=== PATIENT | male | born 1955 | race Caucasian/White ===

== ENCOUNTER 2016-12-05 17:46 | Inpatient (IN) | payer MEDICARE, OTHER ==
--- NOTE | ~2016-12-05 | CT4 ---
[facility]. [facility] A Service of [facility] RADIOLOGY TEXT RESULTS PATIENT: MARIETTA CABRERA LOCATION: A 324-01 : 55 UNIT #: [id number] AGE: [address]: Renate Serna MD SEX: M ORDER DR: [id number] [facility] [address] [facility] [address] [facility]. [place], [place] [address] [id number] MR#: [id number] #: [id number] NAME: MARIETTA CABRERA : 1955 SEX: M STUDY DATE/TIME: 12/05/2016 18:39 UNIT: CEDOF ROOM: 71453 STUDY DESCRIPTION: CT Abd and Pelv Wo Cont Attending Physician: Marie Romero M.D. Ordering Physician: Flor Sherwood M.D. MEDICAL IMAGING REPORT This report is preliminary unless electronic signature is present EXAM CT abdomen and pelvis no contrast 12/05/2016 HISTORY Nausea and vomiting for several weeks. TECHNIQUE This CT exam was performed with one or more of the following radiation dose reduction techniques: automatic exposure control, adjustment of mA and/or kV according to patient size, and iterative reconstruction. COMPARISON STUDIES There are no prior studies for comparison. FINDINGS There are linear and nodular changes at the right lung base with a tiny right effusion, cannot exclude a coarse infiltrate and/or resolving infiltrate or even a small mass. The left lung base shows mild but infiltrate as well versus atelectasis. ABDOMEN: There is a small pericardial effusion. There are tiny sand-like stones within the gallbladder layering posteriorly. The liver is otherwise normal on these unenhanced images and the spleen is normal. The pancreas is mostly fatty replaced but no acute abnormality is seen. The adrenal glands are normal. There are bilateral renal simple cysts but there is no evidence of solid mass, calcification or hydronephrosis. The aorta is normal in caliber. There is no bowel obstruction, but there is a moderate amount residual in the colon which is moderately dilated. The appendix is not confidently identified but there is no evidence to suggest appendicitis or other acute [facility] A Service of [facility] RADIOLOGY TEXT RESULTS PATIENT: MARIETTA CABRERA LOCATION: A 324-01 : 55 UNIT #: [id number] AGE: [address]: Renate Serna MD SEX: M ORDER DR: cristi. There is no hernia. There are spinal degenerative changes, though modest. No acute bony abnormality is seen. IMPRESSION 1. There are multiple tiny sand-like stones within the gallbladder but there is no evidence to suggest cholecystitis or biliary obstruction or choledocholithiasis. 2. There is no evidence of bowel obstruction or renal obstruction. There are simple renal cysts but no stones are seen. 3. There is a moderate amount of stool seen throughout the colon but no dilated loops are seen. Small bowel is normal in caliber. The appendix is not identified and there is no evidence to suggest acute appendicitis. There is some high-density material of the urinary bladder near the right uterovesical junction, but there is no dilatation of the ureter or evidence of a ureteral stone. It would be unusual to see such an unusually configured stone in that region without ureterectasis, though there are no older studies for comparison. 4. There is coarse right basilar infiltrate or scarring or atelectasis and a tiny right effusion and minimal left basilar infiltrate. Dictated by... Martinez Christine M.D. THIS IS AN ELECTRONICALLY VERIFIED REPORT Martinez Christine M.D. at 12/09/2016 4:33 PM TEV/pcl TD: 12/05/2016 23:13 JOB #: [id number] MEDICAL IMAGING REPORT COPY
--- NOTE | ~2016-12-05 | CO ---
Unit #: [id number] #: [id number] Patient: MARIETTA CABRERA [id number] [facility] [address] [facility]. [place], [place] [address] [id number] I MR#: [id number] NAME: MARIETTA CABRERA ROOM: 324 Age: 60 Sex: M Admission Date: 12/05/2016 : 1955 Attending Physician: Renate Serna M.D. Primary Care Physician: Mei Primary Care Physician Consultation Date: 12/09/2016 CONSULTATION REPORT REASON FOR CONSULTATION Rule out pneumonia. CHIEF COMPLAINT Vomiting. HISTORY OF PRESENT ILLNESS This is a 60-year-old male with a past medical history significant for chronic immobility, coronary artery disease, seizure disorder, diabetes, and hypertension who presented to the emergency room for the evaluation of vomiting. The patient stated that his forced him to come to the emergency room. He didn't feel bad to come to the hospital. Patient had a recent admission to [facility] for GI bleeding in 12/2016. The patient is unable to provide any history. Per his family, he is typically able to answer questions at baseline. Plus he may not know the date. PAST MEDICAL HISTORY 1. History of severe esophagitis. 2. History of CVA. 3. Diabetes. 4. Hypertension. 5. Hyperlipidemia. 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 7. History of deltoid abscesses. 8. Basal cell carcinoma. 9. Depression. 10. Seizure. 11. Immobility. PAST SURGICAL HISTORY 1. Excision of left shoulder basal cell carcinoma. 2. Incision and drainage of deltoid abscess. 3. Tonsillectomy. SOCIAL HISTORY The patient lives with his , is immobile and there is no tobacco or alcohol abuse. FAMILY HISTORY Breast cancer and lung cancer. Unit #: [id number] #: [id number] Patient: MARIETTA CABRERA ALLERGIES No known drug allergy. HOME MEDICATIONS 1. Flomax. 2. Vimpat. 3. Keppra. 4. Coreg. 5. Lipitor. 6. Ferrous sulfate. 7. Proscar. 8. Aspirin. 9. Plavix. 10. Zyprexa. 11. Imdur. 12. Nitroglycerin. REVIEW OF SYSTEMS Twelve point review of systems were obtained and he denied almost everything except for vomiting that was noted in the ER note. PHYSICAL EXAMINATION GENERAL: The patient is in no acute distress. He is awake and answering my questions, mainly with appropriate response. HEENT: Atraumatic, normocephalic. PERRLA, EOMI. NECK: Supple. No JVD, no lymphadenopathy. CHEST: Decreased breath sounds bilaterally. HEART: S1, S2. No murmur, gallops or rubs. ABDOMEN: Soft, nontender. Bowel sounds positive. No hepatosplenomegaly. EXTREMITIES: No edema or cyanosis. SKIN: No rashes. BIT SANDER: Awake, alert. He has generalized weakness but no focal symptom. DIAGNOSTIC STUDIES LABS AND OTHER TESTS: Creatinine 1.3, sodium 141, CO2 20, magnesium 1.7, white blood count 6.6. IMAGING STUDIES: CT of abdomen on presentation was concerning for left bilateral lower lobe infiltrate. ASSESSMENT 1. TME. 2. Rule out aspiration pneumonia. 3. Chronic immobility. 4. Basal cell carcinoma. 5. Seizure disorder. 6. Diabetes. 7. Hypertension. PLAN 1. Patient is hemodynamically stable on 1 L nasal cannula. His baseline is room air at home. 2. CT abdomen was noted by me from days ago. 3. There is no signs of pneumonia. 4. I will de-escalate likely all his antibiotics once all his cultures are back. Unit #: [id number] #: [id number] Patient: MARIETTA CABRERA 5. Bronchodilator and mucolytics. 6. DVT and GI prophylaxis. Dictated by... Christine James TD: 12/10/2016 07:48 JOB #: [id number] CONSULTATION REPORT X ROYER GIRALDO MD X CONSULTATION REPORT
--- NOTE | ~2016-12-05 | HP ---
Unit #: [id number] #: [id number] Patient: MARIETTA CABRERA [id number] [facility]. [place], [place] [address] [id number] MR#: [id number] NAME: MARIETTA CABRERA ROOM: 32562 Age: 60 Sex: M Admission Date: 12/05/2016 : 1955 Attending Physician: Marie Romero M.D. HISTORY AND PHYSICAL CHIEF COMPLAINT Vomiting. HISTORY OF PRESENT ILLNESS The patient is a 60-year-old male with a past medical history of multiple medical problems including chronic anemia, chronic immobility, urinary retention, deltoid abscess, non-ST elevation myocardial infarction, basal cell carcinoma, seizure disorder, diabetes, hypertension, hyperlipidemia, Guillain-[place] syndrome, and malnutrition, who presented to the emergency department for evaluation of the above. History is obtained from chart review and discussion with ER staff, as well as discussion with family and a neighbor who are at bedside. The patient was admitted to [facility] November 192016, for upper GI bleed. He underwent EGD that showed severe esophagitis. He was discharged home. The family states that he vomits daily. However, today he had an episode of projectile vomiting and seemed to be somewhat confused and so they brought him to the emergency department for further evaluation. The patient is really unable to provide or contribute to history. The family states that he is typically able to answer questions at baseline. He may or may not know the date. In the emergency department, pulse and blood pressure were 70 and 143/86, respectively. Oxygen saturation 97% on room air. A CT of the abdomen and pelvis was done and showed an opacity at the right base. CT of the head showed nothing acute. He was given vancomycin, Zosyn, and tobramycin in the emergency department. He is being admitted to [facility] for evaluation and further treatment. PAST MEDICAL HISTORY 1. Admission to [facility] November 19-2016, for upper GI bleed. He underwent EGD during that admission that showed severe esophagitis. 2. History of cerebrovascular accident. 3. Diabetes. 4. Hypertension. 5. Hyperlipidemia. 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 7. History of deltoid abscess, status post incision and drainage. 8. Coronary artery disease with history of non-ST elevation myocardial infarction. 9. Basal cell carcinoma of the left shoulder, status post excision. 10. Depression. 11. Seizures. Unit #: [id number] #: [id number] Patient: MARIETTA CABRERA 12. Immobility. PAST SURGICAL HISTORY 1. Excision of left shoulder basal cell carcinoma. 2. Incision and drainage of deltoid abscess. 3. Tonsillectomy. SOCIAL HISTORY The patient lives with his . He is immobile. There is no tobacco or alcohol use. FAMILY HISTORY Notable for his mother having breast cancer, and his dad had lung cancer. ALLERGIES No known allergies. HOME MEDICATIONS Per the Discharge Summary from November 21, 2016, include: 1. Flomax 0.8 mg daily. 2. Vimpat 100 mg b.i.d. 3. Keppra 1000 mg b.i.d. 4. Nystatin 5 mL q.8 hours. 5. Coreg 12.5 mg b.i.d. 6. Lipitor 20 mg daily. 7. Ferrous gluconate 324 mg b.i.d. 8. Proscar 5 mg daily. 9. Aspirin 81 mg daily. 10. Plavix 75 mg daily. 11. Zyprexa 5 mg daily. 12. Imdur 30 mg daily. 13. Nitroglycerin 0.4 mg sublingual p.r.n. 14. Protonix 40 mg daily. REVIEW OF SYSTEMS A complete review of systems is unobtainable from the patient due to altered mental status. PHYSICAL EXAMINATION VITAL SIGNS: Temperature is 97.8, pulse 70, respirations 20, blood pressure 143/86, and oxygen saturation is 97% on room air. GENERAL: Patient is a male who is chronically ill appearing and actively vomiting. HEENT: Head is atraumatic. Mucous membranes are dry. NECK: Supple. Trachea is midline. CARDIOVASCULAR: Regular rate and rhythm. LUNGS: Scattered rhonchi. Breathing is not labored. ABDOMEN: Soft and nontender with bowel sounds present in all four quadrants. EXTREMITIES: Upper extremities are contracted bilaterally. No pedal edema. NEUROLOGIC: Patient shook his head no to answer if he had any pain. PSYCHIATRIC: Patient is cooperative. SKIN: Skin is diaphoretic. DIAGNOSTIC STUDIES LABORATORY: Complete blood count notable for hemoglobin and hematocrit of 10.7 and 33, respectively. Arterial blood gas shows a pH of 7.429, PCO2 Unit #: [id number] #: [id number] Patient: MARIETTA CABRERA of 32.9, and PO2 of 84.6 on room air. INR is 1. Lactic acid is 1.7. Comprehensive metabolic panel notable for a glucose of 136, BUN and creatinine 32 and 1.6, respectively, and albumin is 3.1. Lipase is 16 and amylase 17. Troponin is less than 0.05. IMAGING: CT of the head shows nothing acute. CT of the abdomen and pelvis shows a right base opacity. CARDIOLOGY: EKG shows normal sinus rhythm with a rate of 70 beats per minute. ASSESSMENT The patient is a 60-year-old male with: 1. Altered mental status. 2. Healthcare-associated pneumonia. The patient received vancomycin, Zosyn, and tobramycin in the emergency department. 3. Nausea and vomiting. 4. Acute kidney injury. The patient's creatinine was 1.1 on November 21, 2016. It is 1.6 today. 5. Chronic anemia. The patient's hemoglobin was 9.6 on November 21, 2016. It is 10.7 today. 6. Chronic immobility. 7. Urinary retention with chronic Trcaey catheter. 8. History of deltoid abscess, status post incision and drainage. 9. History of coronary artery disease, status post non-ST elevation myocardial infarction. 10. History of basal cell carcinoma, status post excision. 11. Seizure disorder maintained on Vimpat and Keppra. 12. Diabetes. 13. Hypertension. 14. Hyperlipidemia. 15. Guillain-[place] syndrome. 16. History of cerebrovascular accident. PLAN 1. Admit to intermediate level. 2. N.p.o. until Speech evaluation. 3. Speech Therapy to evaluate and treat. 4. Normal saline at 75 mL/hour. 5. TSH, B12, and folate. 6. Neuro checks q.4 hours. 7. Blood cultures x2. 8. Sputum culture and sensitivity. 9. Supplemental oxygen 2-4 liters to maintain saturations greater than 92%. 10. Streptococcal and legionella urine antigens. 11. Procalcitonin level. 12. DuoNebs q.4 hours. 13. Vancomycin IV, tobramycin IV, and Zosyn IV pending further workup. 14. Sepsis protocol with repeat lactic acid. 15. Check urinalysis with culture and sensitivity. 16. P.r.n. Zofran. 17. P.r.n. Phenergan. 18. Change Vimpat and Keppra to IV. 19. Wound care consult regarding right foot wound present on admission. 20. SCDs. 21. P.r.n. Tylenol. 22. Repeat labs in the morning. Unit #: [id number] #: [id number] Patient: MARIETTA CABRERA 23. Serial cardiac enzymes. 24. Additional workup and consultants based on above. 1. Dictated by Christine Fulton/shannan TD: 12/05/2016 21:24 JOB #: [id number] HISTORY AND PHYSICAL X Marie Romero MD HISTORY AND PHYSICAL
--- NOTE | ~2016-12-05 | CR72 ---
[facility] A Service of [facility] RADIOLOGY TEXT RESULTS PATIENT: MARIETTA CABRERA LOCATION: [facility] 324-01 : 55 UNIT #: [id number] AGE: [address]: Renate Serna MD SEX: M ORDER DR: [id number] [facility] [address] [place], [place] [address] [id number] I MR#: [id number] Acc #: [id number] NAME: MARIETTA CABRERA : 1955 SEX: M STUDY DATE/TIME: 12/05/2016 18:01 UNIT: CEDOF ROOM: 63264 STUDY DESCRIPTION: CR Chest Single View Portable Attending Physician: Marie Romero M.D. Referring Physician: Primary Care Physician No Ordering Physician: Flor Sherwood M.D. Primary Care Physician: Mei Primary Care Physician MEDICAL IMAGING REPORT This report is preliminary unless electronic signature is present EXAM Portable chest, 1 view, 12/05/16 COMPARISON STUDIES 11/10/16 HISTORY Cough and congestion for 3 weeks FINDINGS There is opacity at the right lung base, increased and/or new since the prior study. The left lung remains clear. The heart remains mildly enlarged. The findings at the right base could represent a healing or resolving infiltrate or a new or worsening focal infiltrate. No effusion or pneumothorax. Dictated by... Martinez Christine M.D. THIS IS AN ELECTRONICALLY VERIFIED REPORT Martinez Christine M.D. at 12/09/2016 4:33 PM TEV/ea TD: 12/05/2016 22:42 JOB #: [id number] MEDICAL IMAGING REPORT COPY
--- NOTE | ~2016-12-05 | DS ---
Unit #: [id number] #: [id number] Patient: MARIETTA ANGEL [id number] [address] [address] [id number] I MR#: [id number] NAME: MARIETTA ANGEL ROOM: 324 Age: 60 Sex: M Admission Date: 12/05/2016 : 1955 Discharge Date: Attending Physician: Renate Serna M.D. Primary Care Physician: No Primary Care Physician DISCHARGE SUMMARY FINAL DIAGNOSES 1. Acute hypoxic respiratory failure. 2. Chronic aspiration. 3. Seizure disorder. 4. Diabetes mellitus. 5. Chronic anemia. 6. Guillain-[place] syndrome. 7. Chronic immobility. 8. Hypertension. 9. Hyperlipidemia. 10. Malnutrition. 11. History of deltoid abscess, status post incision and drainage in 10/2016. 12. History of basal cell carcinoma of the left shoulder, status post excision. 13. Depression. 14. Coronary artery disease with a history of non-ST elevation myocardial infarction. 15. History of CVA. DISCHARGE MEDICATIONS 1. Folic acid 1 mg p.o. daily. 2. Nitroglycerin 0.4 mg sublingual p.r.n. chest pain. 3. Imdur ER 30 mg daily. 4. Zyprexa 5 mg at bedtime. 5. Protonix 40 mg daily. 6. Plavix 75 mg daily. 7. Aspirin 81 mg daily. 8. Proscar 5 mg daily. 9. Ferrous gluconate 325 mg b.i.d. 10. Lipitor 20 mg at bedtime. 11. Coreg 12.5 mg b.i.d. 12. Keppra 1000 mg b.i.d. 13. Vimpat 100 mg q.12 h. 14. Flomax 0.8 mg at bedtime. 15. Nebulizer treatment with albuterol and ipratropium q.i.d. and q.[address] Lainey Borrego from pulmonary services. PROCEDURES PERFORMED Speech evaluation and swallow study. The results are regular consistency, thin liquids. Other dietary restrictions like chin tuck. Unit #: [id number] #: [id number] Patient: MARIETTA ANGEL DIAGNOSTIC DATA IMAGING: Chest x-ray PA and lateral on 12/10/2016 which shows low lung volumes with persistent cardiomegaly. The left lung is clear. There is an area of probable evolving scarring and fibrotic change in the right lung base. No definite superimposed active disease. CT scan of the abdomen and pelvis was done on 12/05/2016 which shows multiple tiny sand-like stones within the gallbladder, but no evidence to suggest cholecystitis. No evidence of bowel obstruction or renal obstruction. Moderate amount of stool is seen. CT scan of the head which shows stable exam since 11/2016. No acute intracranial abnormalities. Mild sinus disease with small air fluid level now present in the right axillary sinus. HOSPITAL COURSE Mr. Angel is a 60-year-old male who was admitted by HIPS services and later on transferred to our services. Acute respiratory failure: The patient was admitted to the hospital with acute hypoxic respiratory failure. Dr. Lainey Borrego was consulted. There was a question of pneumonia. The patient did receive antibiotics the first days or so, but they were deescalated as cultures were negative and there was no sign of pneumonia. The patient has been off antibiotics for the last two days or so. The patient is hemodynamically stable, although he does have chronic aspiration. Aspiration precaution needs to be applied. Diet as per speech recommendations. Acute renal insufficiency: On admission the patient did have acute renal insufficiency. IV fluids were started. The patient's BUN on admission was 32 and creatinine was 1.6. On discharge the patient's creatinine is 1.0 and BUN 7.0. It has resolved. Just continue to observe. Altered mental status which is improved. Nausea and vomiting have resolved. Chronic anemia which is stable at this time. Urinary retention: The patient has a chronic Tracey catheter and that needs to be continued. Diabetes mellitus: The patient seems to be stable from that aspect. Blood sugar this morning is 198. Continue to observe closely. Hypertension is stable on current medications. PHYSICAL EXAMINATION VITALS: On discharge, blood pressure 126/78, respiratory rate 16, pulse 80, temperature 97.7. HEENT: Head is normocephalic. CHEST: Decreased air entry. HEART: S1 and S2 positive. Regular rhythm. ABDOMEN: Soft. DIAGNOSTIC DATA LABORATORY: On discharge, white blood cell count 7.5, hemoglobin 8.4, Unit #: [id number] #: [id number] Patient: ANGEL,MARIETTA hematocrit 25.6, platelets 217. Sodium 139, potassium 3.5, chloride 108, BUN 7, creatinine 1.0. Liver enzymes are stable. Blood cultures were negative. DISCHARGE INSTRUCTIONS 1. The patient is being discharged to rehab facility in stable condition. 2. Medications per medication reconciliation. 3. Continue physical therapy and occupational therapy at rehab. Dictated by... Christine Medina TD: 12/12/2016 10:33 JOB #: [id number] DISCHARGE SUMMARY X Renate Serna MD X DISCHARGE SUMMARY
--- NOTE | ~2016-12-05 | CR63 ---
[facility] A Service of [facility] RADIOLOGY TEXT RESULTS PATIENT: MARIETTA CABRERA LOCATION: [facility] 324-01 : 55 UNIT #: [id number] AGE: [address]: Renate Serna MD SEX: M ORDER DR: [id number] [facility] [address] [facility]. [place], [place] [address] [id number] I MR#: [id number] #: [id number] NAME: MARIETTA CABRERA : 1955 SEX: M STUDY DATE/TIME: 12/10/2016 7:57 UNIT: [address] ROOM: [facility] STUDY DESCRIPTION: CR Chest 2 View Attending Physician: Renate Serna M.D. Referring Physician: No Primary Care Physician Ordering Physician: Renate Serna M.D. Primary Care Physician: No Primary Care Physician MEDICAL IMAGING REPORT This report is preliminary unless electronic signature is present EXAM Chest, 2 views, 12/10/2016. INDICATION 60-year-old male with pneumonia, shortness of air. History of stroke. Symptoms began 12/05/2016. TECHNIQUE Two-view chest was performed. COMPARISON 12/05/2016 FINDINGS Cardiac silhouette is enlarged but stable for technical factors. Vascularity unremarkable. There is no new effusion or dense consolidation or a pneumothorax. Lateral view degraded by nonstandard positioning. Redemonstration of subtle curvilinear opacities in the right CP angle on the frontal view. There is no convincing evidence of infiltrate on the lateral projection. This may reflect an area of basilar scarring/fibrosis given a recent right-sided effusion and airspace disease in the right lung base on CT from 10/16/2016. IMPRESSION 1. Low lung volumes with persistent cardiomegaly. 2. The left lung is clear. There is an area of probable evolving scarring and fibrotic change in the right lung base. No definite superimposed active disease. Dictated by... Earnest Singh M.D. [facility] A Service of [facility] RADIOLOGY TEXT RESULTS PATIENT: MARIETTA CABRERA LOCATION: [facility] 324-01 : 55 UNIT #: [id number] AGE: [address]: Renate Serna MD SEX: M ORDER DR: THIS IS AN ELECTRONICALLY VERIFIED REPORT Earnest Singh M.D. at 12/10/2016 4:39 PM Yuriy TD: 12/10/2016 12:38 JOB #: [id number] MEDICAL IMAGING REPORT COPY
--- NOTE | ~2016-12-05 | EKG ---
PATIENT: MARIETTA CABRERA UNIT #: [id number] Ventricular Rate: 70 BPM Atrial Rate: 70 BPM P-R Interval: 176 ms QRS Duration: 72 ms Q-T Interval: 414 ms QTC Calculation(Bezet): 447 ms P [place]: 63 degrees Calculated R [place]: -42 degrees Calculated T [place]: 48 degrees Diagnosis Line: Normal sinus rhythm Diagnosis Line: Left axis deviation Diagnosis Line: Otherwise normal ECG Diagnosis Line: When compared with ECG of 19-NOV-2016 14:55, Diagnosis Line: Criteria for Septal infarct are no longer Present Diagnosis Line: Nonspecific T wave abnormality no longer evident Diagnosis Line: in Anterior leads Diagnosis Line: Confirmed by YOMAIRA SALTER MD ([id number]) on 12/06/2016 Diagnosis Line: 4:44:40 PM INTERPRETING MD: GAETANO GIBBS
--- NOTE | ~2016-12-05 | CT71 ---
[facility]. [facility] A Service of [facility] & [facility] RADIOLOGY TEXT RESULTS PATIENT: MARIETTA CABRERA LOCATION: A 324-01 : 55 UNIT #: [id number] AGE: [address]: Sonal Luna MD SEX: M ORDER DR: [id number] [facility] [address] [facility]. [place], [place] [address] [id number] I MR#: [id number] #: [id number] NAME: MARIETTA CABRERA : 1955 SEX: M STUDY DATE/TIME: 12/05/2016 18:31 UNIT: CEDOF ROOM: [id number] STUDY DESCRIPTION: CT Head Wo Contrast Attending Physician: Marie Romero M.D. Referring Physician: Mei Primary Care Physician Ordering Physician: Flor Sherwood M.D. Primary Care Physician: Mei Primary Care Physician MEDICAL IMAGING REPORT This report is preliminary unless electronic signature is present EXAM CT of the head without contrast. DATE OF EXAM Performed on 12/05/2016 at 1831 hours. CLINICAL HISTORY 60-year-old male with vomiting times several weeks. Patient had a previous stroke in 2013. Patient has a history of seizures. TECHNIQUE NOTE: This CT exam was performed with one or more of the following radiation dose reduction techniques: automatic exposure control, adjustment of mA and/or kV according to patient size, and iterative reconstruction. FINDINGS In comparison to the previous exam of 11/10/2016, there has been no change in the cerebral atrophy and chronic ischemic changes. No hemorrhage, mass effect or edema is appreciated. The paranasal sinuses and mastoid air cells are clear except for a small fluid level in the right maxillary sinus, and some mucosal thickening in the sphenoid sinus on the right. No visualized thrombus in the basilar artery or MCA branches is seen. An old lacunar infarct is present. The left basal ganglia. IMPRESSION 1. Stable exam since 11/10/2016, with no acute intracranial abnormality. Atrophy and chronic ischemic changes as well as an old lacunar type infarct all are again identified. No hemorrhage is seen. 2. Mild sinus disease with a small air-fluid level now present in the right maxillary sinus which may be acute. Clinical correlation recommended. [facility] A Service of [facility] / [facility] RADIOLOGY TEXT RESULTS PATIENT: MARIETTA CABRERA LOCATION: A 324-01 : 55 UNIT #: [id number] AGE: [address]: Sonal Luna MD SEX: M ORDER DR: Dictated by... Alonzo Cary M.D. THIS IS AN ELECTRONICALLY VERIFIED REPORT Alonzo Cary M.D. at 12/06/2016 5:42 PM DEYANIRA/jacquelin TD: 12/05/2016 23:20 JOB #: [id number] MEDICAL IMAGING REPORT COPY
[~2016-12-05 17:46] MED LIST: ASPIRIN81 MG PO; ATORVASTATIN CA40 MG PO; AVODART0.5 MG PO; CLOPIDOGREL75 MG PO; COREG12.5 M1 PO; COREG12.5 MG PO; DAKIN'S MODIF1000 ML EXT; DOXYCYCLINE HY100 M3 PO; FEROSUL325 ( 651 PO; FERRO-TIME325 MG PO; FLOMAX0.4 M1 PO; GLUCOPHAGE500 M1 PO; GLUCOTROL PO; IMDUR-ER30 M1 PO; IMDUR-ER30 M2 PO; IMODIUM2 MG PO; KEPPRA1000 MG PO; KEPPRA500 M2 PO; LEVAQUIN750 M1 PO; LIPITOR20 MG PO; LISINOPRIL10 MG PO; MAG-OXIDE400 MG PO; METFORMIN PO; NITROGLYCERIN0.4 MG SL; NTG 0.4 MG/0.4 MG/M1 SL; NYSTATIN5 ML PO; PLAVIX PO; PROSCAR5 MG PO; PROTONIX PO; PROZAC PO; UNKNOWN MEDICATIONS; VIMPAT100 MG PO; ZESTRIL5 MG PO; ZYPREXA PO
[2016-12-05 18:06] LABS: BASOPHIL# 0.1 X10e3 (0-0.3); BASOPHIL% 0.9 % (0-2.5); EOSINOPHIL# 0.1 X10e3 (0-0.7); EOSINOPHIL% 1.5 % (0.0-7.0); HEMOGLOBIN 10.7 gm/dL (13.0-16.0); LYMPHOCYTE# 1.3 X10e3 (1.0-3.5); LYMPHOCYTE% 15.9 % (17.0-45.0); MEAN CELL VOLUME 86.1 FL (83-96); MEAN CORPUSCULAR HGB CONC 32.6 g/dL (30-36); MEAN PLATELET VOLUME 6.8 FL (6.5-11.5); MONOCYTE# 0.4 X10e3 (0-1.0); MONOCYTE% 4.9 % (3.0-12.0); NEUTROPHIL# 6.3 X10e3 (1.5-7.1); NEUTROPHIL% 76.8 % (40-75); PLATELET COUNT 287 X10e3 (140-420); RED BLOOD COUNT 3.83 X10e (3.90-5.60); WHITE BLOOD COUNT 8.3 X10e3 (4.0-10.5)
[2016-12-05 18:11] LABS: DIFF IND NO
[2016-12-05 18:11] LABS: ARTERIAL BLD GAS O2 SATURATION 95.4 % (90.0-100.0); ARTERIAL BLOOD GAS CARBOXY HB 0.7 %sat (0.0-9.0); ARTERIAL BLOOD GAS HCO3 21.8 mmol/L; ARTERIAL BLOOD GAS MET HB 0.6 %sat (0.0-2.0); ARTERIAL BLOOD GAS PCO2 32.9 mmHg (35.0-45.0); ARTERIAL BLOOD GAS PO2 84.6 mmHg (80.0-100); ARTERIAL BLOOD GAS pH 7.429 (7.350-7.450)
[2016-12-05 18:12] LABS: ARTERIAL BLOOD GAS ALLEN TEST NORMAL; ARTERIAL BLOOD GAS ART SITE RIGHT RADIAL; ARTERIAL DRAW? YES
[2016-12-05 18:21] LABS: PARTIAL THROMBOPLASTIN TIME 27.5 SECONDS (23.5-31.3)
[2016-12-05 18:32] LABS: ALBUMIN SERUM 3.1 g/dL (3.5-5.0); BILIRUBIN, DIRECT 0.1 mg/dL (0.0-0.2); BILIRUBIN,INDIRECT 0.6 mg/dL (0.0-0.9); BILIRUBIN,TOTAL 0.7 mg/dL (0.2-2.0); CALCIUM SERUM 8.6 mg/dL (8.4-10.2); CREATININE SERUM 1.6 mg/dL (0.6-1.4); GLOM FILT RATE Estimated 47.1 mL/min (>60); POTASSIUM 4.3 mmol/L (3.5-5.1); PROTEIN TOTAL SERUM 7.4 g/dL (6.0-8.3)
[2016-12-05 19:04] LABS: POC - CKMB 4.1 ng/mL (0.0-7.9); POC - TROPONIN <0.05 ng/mL (<=0.05)
[2016-12-05 20:14] LABS: URINE SOURCE CLEAN CATCH
[2016-12-05 20:18] LABS: URINE APPEARANCE CLOUDY; URINE BILIRUBIN NEG (NEG); URINE BLOOD 3+ (NEG); URINE COLOR YELLOW; URINE GLUCOSE NEG (NEG); URINE KETONE 1+ (NEG); URINE LEUKOCYTE ESTERASE 3+ (NEG); URINE NITRATE NEG (NEG); URINE PROTEIN 1+ (NEG); URINE SPECIFIC GRAVITY 1.024 (1.003-1.035); URINE UROBILINOGEN 0.2 MG/DL (NEG)
[2016-12-05 20:21] LABS: CULTURE INDICATED? YES; URBCS1 AUWI 100-200 /[HPF] (0-2); URINE BACTERIA AUWI NEG (NEGATIVE); URINE SQUAMOUS EPITHELIAL CELL NONE SEEN /[HPF]; UWBCS1 AUWI INNUM (0-5)
[2016-12-05 20:22] LABS: POC - CKMB 3.4 ng/mL (0.0-7.9); POC - TROPONIN <0.05 ng/mL (<=0.05)
[2016-12-05 21:09] LABS: PROCALCITONIN <0.05 NG/ML
[2016-12-05 21:15] LABS: FOLATE (FOLIC ACID) 5.2 ng/mL (>5.8)
[2016-12-06 00:43] LABS: CK TOTAL 50 IU/L (36-174)
[2016-12-06 07:31] LABS: CK TOTAL 43 IU/L (36-174)
[2016-12-06 09:54] LABS: BASOPHIL% 0.7 % (0-2.5); EOSINOPHIL# 0.1 X10e3 (0-0.7); HEMATOCRIT 29.3 % (38.0-50.0); HEMOGLOBIN 9.7 gm/dL (13.0-16.0); LYMPHOCYTE# 1.4 X10e3 (1.0-3.5); LYMPHOCYTE% 19.7 % (17.0-45.0); MEAN CELL VOLUME 86.4 FL (83-96); MEAN CORPUSCULAR HEMOGLOBIN 28.5 PG (28-34); MEAN PLATELET VOLUME 6.8 FL (6.5-11.5); MONOCYTE# 0.4 X10e3 (0-1.0); MONOCYTE% 5.7 % (3.0-12.0); NEUTROPHIL# 5.2 X10e3 (1.5-7.1); NEUTROPHIL% 71.9 % (40-75); PLATELET COUNT 266 X10e3 (140-420); RED BLOOD COUNT 3.39 X10e (3.90-5.60); RED CELL DISTRIBUTION WIDTH 15.1 % (11.0-15.5); WHITE BLOOD COUNT 7.2 X10e3 (4.0-10.5)
[2016-12-06 09:58] LABS: DIFF IND NO
[2016-12-06 10:03] LABS: ALBUMIN SERUM 2.6 g/dL (3.5-5.0); BILIRUBIN,TOTAL 0.7 mg/dL (0.2-2.0); BUN/CREATININE RATIO 17.33; CALCIUM SERUM 7.7 mg/dL (8.4-10.2); CREATININE SERUM 1.5 mg/dL (0.6-1.4); GLOM FILT RATE Estimated 50.7 mL/min (>60); PROTEIN TOTAL SERUM 5.9 g/dL (6.0-8.3)
[2016-12-07 09:10] LABS: HEMATOCRIT 30.5 % (38.0-50.0); MEAN CELL VOLUME 86.3 FL (83-96); MEAN CORPUSCULAR HEMOGLOBIN 28.3 PG (28-34); MEAN CORPUSCULAR HGB CONC 32.8 g/dL (30-36); MEAN PLATELET VOLUME 6.4 FL (6.5-11.5); RED BLOOD COUNT 3.54 X10e (3.90-5.60); WHITE BLOOD COUNT 6.6 X10e3 (4.0-10.5)
[2016-12-07 09:36] LABS: BUN/CREATININE RATIO 12.3; CALCIUM SERUM 8.1 mg/dL (8.4-10.2); CREATININE SERUM 1.3 mg/dL (0.6-1.4); GLOM FILT RATE Estimated 59.8 mL/min (>60); POTASSIUM 3.7 mmol/L (3.5-5.1)
[2016-12-10 05:52] LABS: HEMATOCRIT 26.3 % (38.0-50.0); HEMOGLOBIN 8.8 gm/dL (13.0-16.0); MEAN CELL VOLUME 86.2 FL (83-96); MEAN CORPUSCULAR HEMOGLOBIN 28.9 PG (28-34); MEAN CORPUSCULAR HGB CONC 33.5 g/dL (30-36); MEAN PLATELET VOLUME 6.6 FL (6.5-11.5); RED BLOOD COUNT 3.06 X10e (3.90-5.60); RED CELL DISTRIBUTION WIDTH 14.8 % (11.0-15.5); WHITE BLOOD COUNT 5.9 X10e3 (4.0-10.5)
[2016-12-10 06:50] LABS: BLOOD UREA NITROGEN 7 mg/dL (9-23); BUN/CREATININE RATIO 7.77; CALCIUM SERUM 7.4 mg/dL (8.4-10.2); CARBON DIOXIDE 24 mmol/L (22-31); CHLORIDE 110 mmol/L (100-111); CREATININE SERUM 0.9 mg/dL (0.6-1.4); GLOM FILT RATE Estimated ABOVE60 mL/min (>60); GLUCOSE FASTING 127 mg/dL (70-110); POTASSIUM 3.6 mmol/L (3.5-5.1); SODIUM 140 mmol/L (135-145)
[2016-12-11 05:17] LABS: HEMATOCRIT 27.8 % (38.0-50.0); HEMOGLOBIN 9.3 gm/dL (13.0-16.0); MEAN CELL VOLUME 84.8 FL (83-96); MEAN CORPUSCULAR HEMOGLOBIN 28.3 PG (28-34); MEAN CORPUSCULAR HGB CONC 33.4 g/dL (30-36); MEAN PLATELET VOLUME 6.5 FL (6.5-11.5); RED BLOOD COUNT 3.28 X10e (3.90-5.60); RED CELL DISTRIBUTION WIDTH 14.6 % (11.0-15.5); WHITE BLOOD COUNT 6.2 X10e3 (4.0-10.5)
[2016-12-11 07:09] LABS: CALCIUM SERUM 7.8 mg/dL (8.4-10.2); CARBON DIOXIDE 22 mmol/L (22-31); CHLORIDE 111 mmol/L (100-111); CREATININE SERUM 0.8 mg/dL (0.6-1.4); GLOM FILT RATE Estimated ABOVE60 mL/min (>60); GLUCOSE FASTING 104 mg/dL (70-110); POTASSIUM 3.8 mmol/L (3.5-5.1); SODIUM 143 mmol/L (135-145)
[2016-12-11 07:14] LABS: BLOOD UREA NITROGEN <5 mg/dL (9-23); BUN/CREATININE RATIO 6.25
[2016-12-12 05:49] LABS: HEMATOCRIT 25.6 % (38.0-50.0); HEMOGLOBIN 8.4 gm/dL (13.0-16.0); MEAN CELL VOLUME 85.5 FL (83-96); MEAN CORPUSCULAR HGB CONC 32.7 g/dL (30-36); MEAN PLATELET VOLUME 6.8 FL (6.5-11.5); RED BLOOD COUNT 2.99 X10e (3.90-5.60); WHITE BLOOD COUNT 7.5 X10e3 (4.0-10.5)
[2016-12-12 06:20] LABS: ALBUMIN SERUM 2.3 g/dL (3.5-5.0); ALKALINE PHOSPHATASE 73 U/L (32-92); ALT (SGPT) 10 U/L (10-40); AST (SGOT) 16 U/L (10-42); BILIRUBIN,TOTAL 0.4 mg/dL (0.2-2.0); BLOOD UREA NITROGEN 7 mg/dL (9-23); CALCIUM SERUM 7.5 mg/dL (8.4-10.2); CARBON DIOXIDE 24 mmol/L (22-31); CHLORIDE 108 mmol/L (100-111); GLOM FILT RATE Estimated ABOVE60 mL/min (>60); GLUCOSE FASTING 201 mg/dL (70-110); POTASSIUM 3.5 mmol/L (3.5-5.1); PROTEIN TOTAL SERUM 5.2 g/dL (6.0-8.3); SODIUM 139 mmol/L (135-145)
== END 2016-12-12 13:21 | DRG 682 ==
LOC: CED 17:46 → CEDOF 19:50 → C3A PCU 12-06 16:02
PROVIDERS: Internal Medicine; Internal Medicine Pulmonary Disease; Physician Assistant Medical; Student in an Organized Health Care Education/Training Program
DX: N17.9 Acute kidney failure, unspecified (principal); J96.01 Acute respiratory failure with hypoxia; G61.0 Guillain-Barre syndrome; E46 Unspecified protein-calorie malnutrition; D52.9 Folate deficiency anemia, unspecified; T17.920A Food in respiratory tract, part unspecified causing asphyxiation, initial encounter; I10 Essential (primary) hypertension; D64.9 Anemia, unspecified; R41.82 Altered mental status, unspecified; Z86.73 Personal history of transient ischemic attack (TIA), and cerebral infarction without residual deficits; I25.10 Atherosclerotic heart disease of native coronary artery without angina pectoris; E78.5 Hyperlipidemia, unspecified; I25.2 Old myocardial infarction; G40.909 Epilepsy, unspecified, not intractable, without status epilepticus; E11.9 Type 2 diabetes mellitus without complications; Z79.82 Long term (current) use of aspirin; Z79.02 Long term (current) use of antithrombotics/antiplatelets; R33.9 Retention of urine, unspecified; Z80.3 Family history of malignant neoplasm of breast; Z80.1 Family history of malignant neoplasm of trachea, bronchus and lung; F32.9 Major depressive disorder, single episode, unspecified; Z85.828 Personal history of other malignant neoplasm of skin; R11.12 Projectile vomiting
CPT/HCPCS: 36415; 36600; 70450; 71010; 71020; 74176; 80048; 80053; 80076; 81003; 82150; 82308; 82550; 82553; 82607; 82746; 82803; 82947; 83605; 83690; 84443; 84484; 85025; 85027; 85610; 85730; 87040; 87086; 87449; 92526; 92610; 93005; 94640; 94760; 97110; 97116; 97163; 97167; 97530; 97535; 99285; C9113; C9254; G8978-GP; G8979-GP; G8980-GP; G8987-GO; G8988-GO; G8996-GN; G8997-GN; G8998-GN; J1815; J1953; J2405; J2543; J2550; J3260; J3370; J3490

== ENCOUNTER 2016-12-23 22:24 | Inpatient (IN) | payer MEDICARE, OTHER ==
--- NOTE | ~2016-12-23 | CO ---
Unit #: [id number] #: [id number] Patient: MARIETTA CABRERA [id number] [address] [place], [place] [address] [id number] I MR#: [id number] NAME: MARIETTA CABRERA ROOM: 550 Age: 61 Sex: M Admission Date: 12/24/2016 : 1955 Attending Physician: Dannie Verma M.D. Consultation Date: 12/24/2016 CONSULTATION REPORT REASON FOR CONSULTATION Elevated creatinine level. HISTORY OF PRESENT ILLNESS The patient is a 61-year-old white male with previous history of coronary artery disease, history of hypertension, type 2 diabetes, history of Guillain-[place] syndrome, history of CVA with residual right hemiparesis, sent in with decreased H and H, noted to have a creatinine level of 3 on admission with a baseline creatinine in the last 2 months ranging from 0.8 to 1.6. The patient also has previous history of basal cell carcinoma in left shoulder and excision, also history of I and D of the deltoid abscess in the past. The patient is being admitted for Hemoccult and decreased hemoglobin. He is being currently transfuse. There is 300 to 400 mL of urine in the bag. No reported history of vomiting, diarrhea, fevers, chills. PAST MEDICAL HISTORY Significant for CVA, type 2 diabetes, hypertension, hyperlipidemia, history of deltoid abscess and basal cell carcinoma of the left shoulder, history of seizures. PAST SURGICAL HISTORY Significant for tonsillectomy, excision of left shoulder basal cell carcinoma, and I and D of deltoid abscess. SOCIAL HISTORY Lives at [facility]. No drinking or smoking. FAMILY HISTORY Significant for breast cancer. HOME MEDICATIONS Include Flomax, Vimpat, Keppra, nystatin, Coreg, Lipitor, Proscar, aspirin, Plavix, Zyprexa, and Imdur. REVIEW OF SYSTEMS Not reliably available. PHYSICAL EXAMINATION GENERAL: The patient is awake, not able to provide reliable history. VITAL SIGNS: The temperature is 99.2, heart rate is 79 per minute, blood pressure is 139/76. HEENT: Head is atraumatic. Extraocular movements are intact. Sclerae are anicteric. Unit #: [id number] #: [id number] Patient: MARIETTA CABRERA NECK: Supple. There is no elevation of the JVD. CHEST: Clear. Air entry is equal. CV: S1, S2 audible. There is no S3, no S4. ABDOMEN: Soft. There is no organomegaly. No guarding. No rigidity. No rebound tenderness. EXTREMITIES: There is right hemiparesis. DIAGNOSTIC STUDIES LABORATORY RESULTS: Significant for sodium 140, potassium 3.8, chloride 110, CO2 of 23, BUN 23, creatinine 2.2, glucose 217, calcium 8.4, albumin is 2.2. WBC 6.6, H and H of 10.5 and 22.7 with a platelet count of 255. The urine culture is pending, wbc's 100 to 200. IMPRESSION 1. Acute kidney injury, possible acute tubular necrosis versus prerenal azotemia secondary to gastrointestinal blood loss. We will hydrate the patient and check for any obstruction. Less likely, postinfectious glomerulonephritis. 2. Gastrointestinal bleed. Gastroenterology is following. 3. Hypertension. 4. Status post cerebrovascular accident. We will follow the patient with you. Dictated by... Lazaro Borrego M.D. /michele TD: 12/25/2016 02:11 JOB #: [id number] CONSULTATION REPORT Page 1 of 1 X Lazaro Borrego MD X CONSULTATION REPORT
--- NOTE | ~2016-12-23 | HP ---
Unit #: [id number] #: [id number] Patient: MARIETTA ANGEL [id number] [address] [address] [id number] I MR#: [id number] NAME: MARIETTA ANGEL ROOM: 550 Age: 61 Sex: M Admission Date: 12/24/2016 : 1955 Attending Physician: Dannie Verma M.D. Primary Care Physician: No Primary Care Physician HISTORY AND PHYSICAL CHIEF COMPLAINT Abnormal labs. HISTORY OF PRESENTING ILLNESS Mr. Angel is a 61-year-old male who is not able to give any history, was sent from [facility] because of the abnormal labs. Patient was recently discharge from hospital on December 12, 2016. Patient has had multiple admissions to hospital almost every month in the last few months. Patient was discharged to [facility] on December 12, 2016 and he was doing well. Patient was sent back for abnormal labs. His creatinine was 3.8 and his hemoglobin was low. Patient did not have any complaint. Again he is awake, alert and oriented x1. Most of the history was taken from ER note. PAST MEDICAL HISTORY 1. History of severe esophagitis. 2. History of CVA. 3. History of diabetes mellitus. 4. Hypertension. 5. Hyperlipidemia. 6. Guillain-[place] syndrome. 7. Immobility. 8. History of deltoid abscess, status post incision and drainage. 9. Coronary artery disease. 10. Basal cell carcinoma of the left shoulder. 11. Depression. 12. Seizures. PAST SURGICAL HISTORY 1. Excision of left shoulder basal cell carcinoma. 2. I/D of deltoid abscess. 3. Tonsillectomy. SOCIAL HISTORY Patient lives at [facility] at this time. He is immobile. No history of tobacco or alcohol abuse. FAMILY HISTORY The patient's mother had breast cancer and dad had lung cancer. ALLERGIES No known drug allergies. Unit #: [id number] #: [id number] Patient: MARIETTA ANGEL HOME MEDICATIONS Home medications are: 1. Flomax 0.8 mg daily. 2. Vimpat 100 mg b.i.d. 3. Keppra 1000 mg b.i.d. 4. Coreg 12.5 mg b.i.d. 5. Lipitor 20 mg daily. 6. Ferrous sulfate 325 mg b.i.d. 7. Proscar 5 mg daily. 8. Aspirin 81 mg daily. 9. Plavix 75 mg daily. 10. Zyprexa 5 mg q.h.s. 11. Imdur ER 30 mg daily. 12. Nitroglycerin 0.4 mg sublingual p.r.n. 13. Protonix 40 mg daily. REVIEW OF SYMPTOMS As per history of presenting illness. According to patient he is not vomiting. He does not have chest pain or abdominal pain or shortness of breath. Again I am not sure whether I can rely on his history. PHYSICAL EXAMINATION GENERAL APPEARANCE: Patient is lying comfortably in bed, is getting transfusion. VITAL SIGNS: Blood pressure is 145/91. Respiratory rate 18. Pulse is 77. Temperature 98.3. Oxygen saturation 96%. HEENT: Head is normocephalic. Eye movements are normal. Oral cavity moist mucosa. NECK: Neck is supple. CHEST: Chest has fair air entry, decreased at the bases. CVS: S1, S2 positive, regular rhythm. ABDOMEN: Abdomen is soft. No tenderness. EXTREMITIES: Negative edema. 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 NEUROLOGIC: Neuro exam is very limited. DIAGNOSTIC STUDIES LABORATORY WORKUP: Urinalysis shows yeast present. Sodium 140, potassium 3.8, chloride 110, BUN 23, creatinine 2.2, glucose 217, WBC 6.6, hemoglobin 7.5, hematocrit 22.7 and platelet count of 255. This morning hemoglobin is 6.9. ASSESSMENT Patient is being admitted to telemetry unit with: 1. Severe anemia. 2. Possible gastrointestinal bleed. 3. History of EGD in November which showed severe esophagitis. 4. Xtlal-fw-lgxuvrv renal failure. 5. Diabetes mellitus type 2. 6. Seizure disorder. 7. Chronic immobility. 8. History of Guillain-[place] syndrome. PLAN Plan is admit to telemetry unit. Dr. Hines from renal services has been consulted. Renal ultrasound is being done. IV fluids as per their recommendation which is normal saline at [address] Pham has been consulted. Recent EGD was done which shows severe esophagitis. Patient Unit #: [id number] #: [id number] Patient: MARIETTA ANGEL is being started on Protonix 40 mg b.i.d. Type and cross and transfusion of two units will be done. MiraLAX p.r.n. Patient may need colonoscopy, will discuss with Dr. Pham. Please refer to progress note for further orders. Dictated by Christine Medina/roma TD: 12/24/2016 15:33 JOB #: [id number] HISTORY AND PHYSICAL Page 1 of 1 X Renate Serna MD X HISTORY AND PHYSICAL
--- NOTE | ~2016-12-23 | DS ---
Unit #: [id number] #: [id number] Patient: MARIETTA CABRERA [id number] [address] [address] [id number] I MR#: [id number] NAME: MARIETTA CABRERA ROOM: 550 Age: 61 Sex: M Admission Date: 12/24/2016 : 1955 Discharge Date: 12/28/2016 Attending Physician: Dannie Verma M.D. Primary Care Physician: Primary Care Physician No DISCHARGE SUMMARY DISCHARGE DIAGNOSES 1. Anemia, questionable GI bleed, status post GI evaluation, status post transfusion, hematocrit and hemoglobin is stable, resuming aspirin and Plavix, stable from GI standpoint to be discharged. 2. Acute renal failure which had resolved, last BUN and creatinine 11 and 1.1, status post evaluation per nephrology. 3. Questionable diabetes, continue p.r.n. sliding scale. 4. Hypertension, continue home medications. 5. History of seizure disorder, continue Keppra and Vimpat. DISCHARGE MEDICATIONS 1. Vimpat 100 mg b.i.d. 2. Flomax 0.8 mg at bedtime 3. Keppra 1000 mg b.i.d. 4. Diflucan 200 mg p.o. daily for five more days 5. Carvedilol 12.5 mg b.i.d. 6. Norvasc 5 mg daily 7. MiraLAX 17 grams p.o. b.i.d. 8. Lipitor 20 mg daily 9. Ferrous sulfate daily 10. Proscar 5 mg daily 11. Aspirin 81 mg daily 12. Plavix 75 mg daily 13. Protonix 40 mg b.i.d. 14. Zyprexa 5 mg at bedtime 15. Imdur 30 mg daily 16. Nitrostat p.r.n. CONSULTS THIS HOSPITAL STAY 1. Dr. Pham - LEAN[facility] 2. Dr. Lazaro Borrego - nephrology LABS, DIAGNOSTICS, AND PROCEDURES DURING THIS HOSPITAL STAY Renal ultrasound was unremarkable. Benign-appearing left renal cyst measuring 2.9 cm, no hydronephrosis. Incidental findings of cholelithiasis. HISTORY OF PRESENT ILLNESS AND HOSPITAL STAY Please refer to history and physical done by my colleague, Dr. Serna for initial presentation on this gentleman. ACTIVE PROBLEMS AND DIAGNOSES Anemia with questionable GI bleed, status post evaluation for GI was treated with the b.i.d. PPI. The patient being transfused, H and H Unit #: [id number] #: [id number] Patient: MARIETTA CABRERA stable, outpatient follow up with GI for possible scopes. Acute renal failure, resolved, status post evaluation per nephrology. Hypertension, stable. Seizure disorder, continue home medications. Dyslipidemia, continue statins. DISPOSITION Going back to [place] to Dr. Hinojosa's care, also extended alf care company to follow the patient. Dictated by... Christine Bedoya/julia TD: 12/29/2016 09:03 JOB #: [id number] DISCHARGE SUMMARY Page 1 of 1 X Dannie Verma MD X DISCHARGE SUMMARY
--- NOTE | ~2016-12-23 | CO ---
Unit #: [id number] #: [id number] Patient: MARIETTA ANGEL [id number] [address] [address] [id number] I MR#: [id number] NAME: MARIETTA ANGEL ROOM: 550 Age: 61 Sex: M Admission Date: 12/24/2016 : 1955 Attending Physician: Dannie Verma M.D. Primary Care Physician: Primary Care Physician No Consultation Date: 12/24/2016 CONSULTATION REPORT REASON FOR CONSULTATION Severe anemia. HISTORY OF PRESENTING ILLNESS Mr. Angel is a 61-year-old gentleman with multiple medical problems including chronic immobility, diabetes mellitus, seizure disorder, GB syndrome, and chronic malnutrition. He has history of chronic anemia also. [facility] was [facility] when he was found to be severely anemic. The patient is awake and denies any history of nausea, vomiting, hematemesis, blood in the stool, or black stools. He denies any abdominal pain. He denies any new symptoms otherwise. PAST MEDICAL HISTORY As above. Also with history of diabetes mellitus, hypertension, hyperlipidemia, history of deltoid abscess, history of coronary artery disease. He also with history of depression. MEDICATIONS Among others include Plavix and aspirin. SOCIAL HISTORY Nonsmoker and nonalcoholic. FAMILY HISTORY No history of colon cancer. ALLERGIES None. REVIEW OF SYSTEMS A complete 10-point review of systems was done, which is unremarkable other than as mentioned above. PHYSICAL EXAMINATION VITAL SIGNS: Stable, low-grade fever, T-max 99.2, pulse 79, respirations 16, blood pressure 139/76. HEENT: Pupils equal and reactive. Sclerae are anicteric. Oral mucosa moist. NECK: No JVD. No lymphadenopathy. CHEST: Clear to auscultation. Few scattered rhonchi. CARDIOVASCULAR: Regular rate and rhythm. No murmurs. ABDOMEN: Soft, nontender, and nondistended. EXTREMITIES: Without clubbing or cyanosis. NEUROLOGIC: Deferred. Unit #: [id number] #: [id number] Patient: MARIETTA ANGEL DIAGNOSTIC STUDIES LABORATORY RESULTS: INR of 1. BUN and creatinine 19 and 1.9. LFTs normal. CBC with a hemoglobin of 6.9, baseline was 8.4. Platelet count and white counts are normal. ASSESSMENT AND PLAN 1. The patient with acute on chronic anemia. Hemoccult-positive suggests chronic bleeding. Acute bleeding cannot be ruled out. Recent EGD shows severe esophagitis with ulceration. I will keep him on Protonix infusion and given blood transfusions. At age 60, he is a definitely at high risk of colorectal cancer, also. Never had a colonoscopy. We will plan on doing a colonoscopy after 3 days off Plavix. Further recommendations to follow. 2. The patient with multiple comorbidities including coronary artery disease, immobility as well as diabetes mellitus and remains at high risk of complications including procedure and sedation. Thank you Dr. Serna for this interesting consult. We will follow along. Dictated by... Christine Paz/michele TD: 12/24/2016 08:24 JOB #: [id number] CONSULTATION REPORT Page 1 of 1 X Julius Pham MD X CONSULTATION REPORT
--- NOTE | ~2016-12-23 | US77 ---
[facility] A Service of [facility] & [facility] / [facility] RADIOLOGY TEXT RESULTS PATIENT: MARIETTA CABRERA LOCATION: B 550-01 : 55 UNIT #: [id number] AGE: [address]: Dannie Verma MD SEX: M ORDER DR: [id number] [facility] [address] [facility]. [place], [place] [address] [id number] I MR#: [id number] #: [id number] NAME: MARIETTA CABRERA : 1955 SEX: M STUDY DATE/TIME: 12/24/2016 13:58 UNIT: [facility] ROOM: [facility] STUDY DESCRIPTION: US Kidney Bilateral Complete Attending Physician: Dannie Verma M.D. Ordering Physician: Santhosh Mcdonnell M.D. Primary Care Physician: Primary Care Physician No MEDICAL IMAGING REPORT This report is preliminary unless electronic signature is present EXAM Bilateral renal ultrasound 12/24/2016 HISTORY Abnormal renal function. GFR 38. Creatinine 1.9. BUN 1.9. COMPARISON CT abdomen and pelvis without contrast 12/05/2016. FINDINGS The right kidney measures 10.6 cm in length. The left kidney measures 10.5 cm in length. A cyst in the left lower renal pole measures 2.4 x 2.8 x 2.9 cm. A cyst seen in the right upper renal pole posteriorly on previous CT has no sonographic correlate. The creative engagement director has placed calipers upon normal appearing right upper renal pole parenchyma which does not correspond to finding on CT. No right or left hydronephrosis is seen. Renal cortical echotexture is within normal limits. Incidental note is made of multiple shadowing gallstones. IMPRESSION 1. Benign appearing left renal cyst measuring 2.9 cm. 2. A cyst seen in the right upper renal pole on previous CT has no correlate on today's ultrasound. 3. No right or left hydronephrosis. 4. The urinary bladder is not well visualized, decompressed by Tracey catheter. 5. Incidental finding of cholelithiasis. Dictated by... Zehra Wade M.D. THIS IS AN ELECTRONICALLY VERIFIED REPORT [facility] A Service of [facility] & [facility] / [facility] RADIOLOGY TEXT RESULTS PATIENT: MARIETTA CABRERA LOCATION: [facility] 550-01 : 55 UNIT #: [id number] AGE: [address]: Dannie Verma MD SEX: M ORDER DR: Zehra Wade M.D. at 12/26/2016 8:33 AM MIROSLAVA/alberto TD: 12/25/2016 08:55 JOB #: [id number] MEDICAL IMAGING REPORT Page 1 of 1 COPY
[2016-12-23 23:14] LABS: URINE SOURCE CLEAN CATCH
[2016-12-23 23:19] LABS: URINE APPEARANCE TURBID; URINE BILIRUBIN NEG (NEG); URINE BLOOD 3+ (NEG); URINE COLOR YELLOW; URINE GLUCOSE NEG (NEG); URINE KETONE NEG (NEG); URINE LEUKOCYTE ESTERASE 3+ (NEG); URINE NITRATE NEG (NEG); URINE PROTEIN TRACE (NEG); URINE SPECIFIC GRAVITY 1.012 (1.003-1.035); URINE UROBILINOGEN 0.2 MG/DL (NEG)
[2016-12-23 23:22] LABS: CULTURE INDICATED? YES; URBCS1 AUWI 50-100 /[HPF] (0-2); URINE BACTERIA AUWI NEG (NEGATIVE); URINE SQUAMOUS EPITHELIAL CELL OCC /[HPF]; UWBCS1 AUWI INNUM (0-5)
[2016-12-23 23:32] LABS: URINE YEAST PRESENT
[2016-12-24 00:35] LABS: BASOPHIL# 0.1 X10e3 (0-0.3); BASOPHIL% 1.2 % (0-2.5); EOSINOPHIL# 0.2 X10e3 (0-0.7); EOSINOPHIL% 2.8 % (0.0-7.0); HEMATOCRIT 22.7 % (38.0-50.0); HEMOGLOBIN 7.5 gm/dL (13.0-16.0); LYMPHOCYTE# 1.3 X10e3 (1.0-3.5); LYMPHOCYTE% 20.2 % (17.0-45.0); MEAN CELL VOLUME 85.9 FL (83-96); MEAN CORPUSCULAR HEMOGLOBIN 28.3 PG (28-34); MEAN CORPUSCULAR HGB CONC 32.9 g/dL (30-36); MEAN PLATELET VOLUME 6.8 FL (6.5-11.5); MONOCYTE# 0.4 X10e3 (0-1.0); MONOCYTE% 6.7 % (3.0-12.0); NEUTROPHIL# 4.5 X10e3 (1.5-7.1); NEUTROPHIL% 69.1 % (40-75); PLATELET COUNT 255 X10e3 (140-420); RED BLOOD COUNT 2.64 X10e (3.90-5.60); RED CELL DISTRIBUTION WIDTH 15.4 % (11.0-15.5); WHITE BLOOD COUNT 6.6 X10e3 (4.0-10.5)
[2016-12-24 00:37] LABS: DIFF IND YES
[2016-12-24 00:55] LABS: ALBUMIN SERUM 2.2 g/dL (3.5-5.0); BILIRUBIN, DIRECT 0.1 mg/dL (0.0-0.2); BILIRUBIN,INDIRECT 0.7 mg/dL (0.0-0.9); BILIRUBIN,TOTAL 0.8 mg/dL (0.2-2.0); BUN/CREATININE RATIO 10.45; CALCIUM SERUM 8.4 mg/dL (8.4-10.2); CREATININE SERUM 2.2 mg/dL (0.6-1.4); GLOM FILT RATE Estimated 32.5 mL/min (>60); POTASSIUM 3.8 mmol/L (3.5-5.1); PROTEIN TOTAL SERUM 5.8 g/dL (6.0-8.3)
[2016-12-24 01:30] LABS: PLATELET ESTIMATE NORMAL (NORMAL)
[2016-12-24 01:31] LABS: ANISOCYTOSIS SL; HYPOCHROMIA SL
[2016-12-24 02:15] LABS: URINE SOURCE CLEAN CATCH
[2016-12-24 02:19] LABS: URINE APPEARANCE TURBID; URINE BILIRUBIN NEG (NEG); URINE BLOOD 3+ (NEG); URINE COLOR YELLOW; URINE GLUCOSE NEG (NEG); URINE KETONE NEG (NEG); URINE LEUKOCYTE ESTERASE 3+ (NEG); URINE NITRATE NEG (NEG); URINE PROTEIN 1+ (NEG); URINE SPECIFIC GRAVITY 1.012 (1.003-1.035); URINE UROBILINOGEN 0.2 MG/DL (NEG)
[2016-12-24 02:22] LABS: CULTURE INDICATED? YES; URBCS1 AUWI INNUM /[HPF] (0-2); URINE BACTERIA AUWI NEG (NEGATIVE); URINE SQUAMOUS EPITHELIAL CELL OCC /[HPF]; UWBCS1 AUWI 100-200 (0-5)
[2016-12-24 02:35] LABS: URINE YEAST PRESENT
[2016-12-24 06:58] LABS: BASOPHIL# 0.1 X10e3 (0-0.3); BASOPHIL% 1.3 % (0-2.5); EOSINOPHIL# 0.2 X10e3 (0-0.7); EOSINOPHIL% 2.7 % (0.0-7.0); HEMATOCRIT 21.4 % (38.0-50.0); LYMPHOCYTE# 1.5 X10e3 (1.0-3.5); LYMPHOCYTE% 21.1 % (17.0-45.0); MEAN CELL VOLUME 85.8 FL (83-96); MEAN CORPUSCULAR HEMOGLOBIN 27.6 PG (28-34); MEAN CORPUSCULAR HGB CONC 32.2 g/dL (30-36); MEAN PLATELET VOLUME 6.4 FL (6.5-11.5); MONOCYTE# 0.5 X10e3 (0-1.0); MONOCYTE% 7.4 % (3.0-12.0); NEUTROPHIL# 4.7 X10e3 (1.5-7.1); NEUTROPHIL% 67.5 % (40-75); PLATELET COUNT 248 X10e3 (140-420); RED CELL DISTRIBUTION WIDTH 15.5 % (11.0-15.5); WHITE BLOOD COUNT 6.9 X10e3 (4.0-10.5)
[2016-12-24 06:59] LABS: DIFF IND NO; HEMOGLOBIN 6.9 gm/dL (13.0-16.0)
[2016-12-24 07:22] LABS: CALCIUM SERUM 8.4 mg/dL (8.4-10.2); CREATININE SERUM 1.9 mg/dL (0.6-1.4); GLOM FILT RATE Estimated 38.5 mL/min (>60); POTASSIUM 3.7 mmol/L (3.5-5.1)
[2016-12-25 06:40] LABS: HEMATOCRIT 29.4 % (38.0-50.0); MEAN CELL VOLUME 87.7 FL (83-96); MEAN CORPUSCULAR HEMOGLOBIN 28.7 PG (28-34); MEAN CORPUSCULAR HGB CONC 32.7 g/dL (30-36); MEAN PLATELET VOLUME 6.6 FL (6.5-11.5); RED BLOOD COUNT 3.35 X10e (3.90-5.60); RED CELL DISTRIBUTION WIDTH 15.9 % (11.0-15.5); WHITE BLOOD COUNT 7.9 X10e3 (4.0-10.5)
[2016-12-25 06:44] LABS: HEMOGLOBIN 9.6 gm/dL (13.0-16.0)
[2016-12-25 07:45] LABS: ALBUMIN SERUM 2.3 g/dL (3.5-5.0); BILIRUBIN,TOTAL 0.3 mg/dL (0.2-2.0); CALCIUM SERUM 7.9 mg/dL (8.4-10.2); CREATININE SERUM 1.3 mg/dL (0.6-1.4); GLOM FILT RATE Estimated 59.6 mL/min (>60); POTASSIUM 3.5 mmol/L (3.5-5.1)
[2016-12-25 08:23] LABS: URINE APPEARANCE CLOUDY; URINE BILIRUBIN NEG (NEG); URINE BLOOD 2+ (NEG); URINE COLOR YELLOW; URINE GLUCOSE NEG (NEG); URINE KETONE NEG (NEG); URINE LEUKOCYTE ESTERASE 2+ (NEG); URINE NITRATE NEG (NEG); URINE PROTEIN NEG (NEG); URINE SPECIFIC GRAVITY 1.009 (1.003-1.035); URINE UROBILINOGEN 0.2 MG/DL (NEG)
[2016-12-25 08:26] LABS: URINE BACTERIA AUWI NEG (NEGATIVE); URINE SQUAMOUS EPITHELIAL CELL OCC /[HPF]; UWBCS1 AUWI 25-50 (0-5)
[2016-12-26 05:57] LABS: HEMOGLOBIN 9.7 gm/dL (13.0-16.0); MEAN CELL VOLUME 87.1 FL (83-96); MEAN CORPUSCULAR HEMOGLOBIN 28.2 PG (28-34); MEAN CORPUSCULAR HGB CONC 32.3 g/dL (30-36); MEAN PLATELET VOLUME 6.5 FL (6.5-11.5); RED BLOOD COUNT 3.45 X10e (3.90-5.60); RED CELL DISTRIBUTION WIDTH 15.7 % (11.0-15.5); WHITE BLOOD COUNT 6.8 X10e3 (4.0-10.5)
[2016-12-26 06:46] LABS: ALBUMIN SERUM 2.3 g/dL (3.5-5.0); ALKALINE PHOSPHATASE 74 U/L (32-92); ALT (SGPT) 10 U/L (10-40); AST (SGOT) 15 U/L (10-42); BILIRUBIN,TOTAL 0.6 mg/dL (0.2-2.0); BLOOD UREA NITROGEN 12 mg/dL (9-23); CARBON DIOXIDE 25 mmol/L (22-31); CHLORIDE 108 mmol/L (100-111); CREATININE SERUM 1.2 mg/dL (0.6-1.4); GLOM FILT RATE Estimated ABOVE60 mL/min (>60); GLUCOSE FASTING 135 mg/dL (70-110); POTASSIUM 4.2 mmol/L (3.5-5.1); PROTEIN TOTAL SERUM 6.1 g/dL (6.0-8.3); SODIUM 141 mmol/L (135-145)
[2016-12-27 03:56] LABS: URINE APPEARANCE CLEAR; URINE BILIRUBIN NEG (NEG); URINE BLOOD NEG (NEG); URINE COLOR YELLOW; URINE GLUCOSE NEG (NEG); URINE KETONE NEG (NEG); URINE LEUKOCYTE ESTERASE NEG (NEG); URINE NITRATE NEG (NEG); URINE PROTEIN NEG (NEG); URINE SPECIFIC GRAVITY 1.009 (1.003-1.035); URINE UROBILINOGEN 0.2 MG/DL (NEG)
[2016-12-27 04:01] LABS: CULTURE INDICATED? NO
[2016-12-27 05:42] LABS: HEMOGLOBIN 9.7 gm/dL (13.0-16.0); MEAN CELL VOLUME 87.7 FL (83-96); MEAN CORPUSCULAR HEMOGLOBIN 28.3 PG (28-34); MEAN CORPUSCULAR HGB CONC 32.3 g/dL (30-36); MEAN PLATELET VOLUME 6.6 FL (6.5-11.5); RED BLOOD COUNT 3.42 X10e (3.90-5.60); RED CELL DISTRIBUTION WIDTH 15.8 % (11.0-15.5); WHITE BLOOD COUNT 6.5 X10e3 (4.0-10.5)
[2016-12-27 06:14] LABS: CALCIUM SERUM 7.6 mg/dL (8.4-10.2); CREATININE SERUM 1.1 mg/dL (0.6-1.4); GLOM FILT RATE Estimated 72.1 mL/min (>60)
[2016-12-28 05:18] LABS: HEMATOCRIT 28.1 % (38.0-50.0); HEMOGLOBIN 9.3 gm/dL (13.0-16.0); MEAN CELL VOLUME 86.5 FL (83-96); MEAN CORPUSCULAR HEMOGLOBIN 28.6 PG (28-34); MEAN PLATELET VOLUME 6.5 FL (6.5-11.5); RED BLOOD COUNT 3.25 X10e (3.90-5.60); RED CELL DISTRIBUTION WIDTH 15.7 % (11.0-15.5); WHITE BLOOD COUNT 6.8 X10e3 (4.0-10.5)
== END 2016-12-28 20:13 | DRG 377 ==
LOC: CED 22:24 → CEDOF 12-24 02:34 → C5B 12-24 10:36
PROVIDERS: Emergency Medicine; Hospitalist; Internal Medicine; Internal Medicine Nephrology; Physician Assistant Medical
PROC: 30233N1 Transfusion of Nonautologous Red Blood Cells into Peripheral Vein, Percutaneous Approach (ICD-10-PCS; principal; 2016-12-24)
DX: K92.2 Gastrointestinal hemorrhage, unspecified (principal); N17.0 Acute kidney failure with tubular necrosis; D64.9 Anemia, unspecified; G40.909 Epilepsy, unspecified, not intractable, without status epilepticus; Z79.82 Long term (current) use of aspirin; Z79.01 Long term (current) use of anticoagulants; E78.5 Hyperlipidemia, unspecified; Z86.73 Personal history of transient ischemic attack (TIA), and cerebral infarction without residual deficits; Z85.828 Personal history of other malignant neoplasm of skin; Z80.3 Family history of malignant neoplasm of breast; Z80.1 Family history of malignant neoplasm of trachea, bronchus and lung; I12.9 Hypertensive chronic kidney disease with stage 1 through stage 4 chronic kidney disease, or unspecified chronic kidney disease; E11.22 Type 2 diabetes mellitus with diabetic chronic kidney disease; N18.9 Chronic kidney disease, unspecified; K20.9 Esophagitis, unspecified; Z85.89 Personal history of malignant neoplasm of other organs and systems; Z66 Do not resuscitate; K21.9 Gastro-esophageal reflux disease without esophagitis
CPT/HCPCS: 36415; 76770; 80048; 80053; 80076; 81003; 82570; 82728; 84156; 84300; 85025; 85027; 86850; 86900; 86901; 86923; 87086; 92526; 92610; 96360; 99285; C9113; G8996-GN; G8997-GN; J2916; P9016